=== PATIENT | male | born 1995 | race Two or more races ===

== ENCOUNTER 2023-01-22 10:48 | Emergency (ER) | payer OTHER ==
[~2023-01-22] VITALS: Ht 167.6 cm; Wt 81.6 kg
[2023-01-22 13:22] LABS: PH,URINE 7.5 (5.0-8.0); URINE APPEARANCE Turbid; URINE BILIRRUBIN Negative (NEGATIVE); URINE BLOOD Negative; URINE COLOR Yellow; URINE GLUCOSE Negative (NEGATIVE); URINE LEUKOCYTE Negative; URINE NITRATE Negative; URINE PROTEIN Negative (NEGATIVE); URINE UROBILINOGEN 0.2 E.U./dl
[2023-01-22 13:26] LABS: URINE BACTERIA 11.3 uL (0.0-1933); URINE EPITHELIAL CELLS 1.6 uL (0.0-38.8); URINE RBC 7.1 uL (0.0-20.8); URINE WBC 7.7 uL (0.0-23.2)
== END 2023-01-22 14:55 | disposition home or self-care (01) ==
LOC: ER 10:48
PROVIDERS: Nurse Practitioner Family
DX: N50.811 Right testicular pain (principal)